=== PATIENT | female | born 1990 | race Asian ===

== ENCOUNTER 2017-01-28 06:33 | Inpatient (IN) | payer OTHER ==
[2017-01-28] VITALS (35 sets, daily range): BP systolic 98–144; BP diastolic 62–94
[~2017-01-28] VITALS: Ht 157.5 cm; Wt 75.9 kg
[2017-01-28] MEDS ORDERED: PRENATAL TABLE1 EAC3 PO (07:11)
[2017-01-28 08:08] LABS: EOSINOPHIL (%) 0.2 % (0-5); HEMATOCRIT 36.3 % (36.0-46.0); IMMATURE GRANULOCYTE (%) 0.8 % (0.0-0.7); IMMATURE GRANULOCYTE COUNT 0.1 K/uL; INSTRUMENT ABS NEUTROPHIL CT 9.5 K/uL; LYMPHOCYTE COUNT 2.2 K/uL (1.0-2.8); MCH 27.4 PG (29.0-34.0); MCHC 32.5 G/DL (30.0-36.0); MCV 84.2 FL (83-99); MEAN PLAT.VOLUME 12.9 uM^3 (9.5-12.4); MONOCYTE (%) 5.2 % (3-12); MONOCYTE COUNT 0.7 K/uL (0-0.8); NEUTROPHIL (%) 75.9 % (45-76); NEUTROPHIL COUNT 9.5 K/uL (1.8-6.4); PLATELET COUNT 183 K/uL (156-360); RBC DIS.WIDTH-CV 14.5 % (11.8-14.6); RBC DIS.WIDTH-SD 44.6 % (39-53); RED BLOOD COUNT 4.31 M/uL (3.80-5.20); WHITE BLOOD COUNT 12.6 K/uL (4.1-10.2)
[2017-01-28] MEDS ORDERED: MOTRIN800 MG PO (22:53)
[2017-01-29 00:39] VITALS: BP 127/72
[2017-01-29 01:24] VITALS: BP 130/75
[2017-01-29 07:35] VITALS: BP 122/81
[2017-01-29 15:33] VITALS: BP 118/62
[2017-01-29 23:44] VITALS: BP 128/71
[2017-01-30 07:25] VITALS: BP 118/75
[2017-01-30 15:17] VITALS: BP 125/75
== END 2017-01-30 17:27 | disposition home or self-care (01) | DRG 775 ==
LOC: LDRP-OP 06:33 → EDBD 06:34 → 2WEST 06:34 → LDRP-OP 09:26 → 2WEST 22:27 → LDRP-OP 02-23 20:18
PROVIDERS: Obstetrics & Gynecology
PROC: 10E0XZZ Delivery of Products of Conception, External Approach (ICD-10-PCS; principal; 2017-01-28)
PROC: 10907ZC Drainage of Amniotic Fluid, Therapeutic from Products of Conception, Via Natural or Artificial Opening (ICD-10-PCS; principal; 2017-01-28)
PROC: 3E0R3CZ (ICD-10-PCS; principal; 2017-01-28)
PROC: 0KQM0ZZ Repair Perineum Muscle, Open Approach (ICD-10-PCS; principal; 2017-01-28)
PROC: 00HU33Z Insertion of Infusion Device into Spinal Canal, Percutaneous Approach (ICD-10-PCS; principal; 2017-01-28)
DX: O70.1 Second degree perineal laceration during delivery (principal); Z3A.40 40 weeks gestation of pregnancy; Z37.0 Single live birth
CPT/HCPCS: 85025; C1755; J3010; J7120

== ENCOUNTER 2017-03-29 12:21 | Emergency (ER) | payer OTHER ==
[~2017-03-29] VITALS: Ht 157.5 cm; Wt 69.0 kg
[~2017-03-29 12:21] MED LIST: MOTRIN800 MG PO; PRENATAL TABLE1 EAC3 PO
[2017-03-29 14:30] LABS: EOSINOPHIL (%) 1.5 % (0-5); EOSINOPHIL COUNT 0.3 K/uL (0-0.3); HEMATOCRIT 36.9 % (36.0-46.0); IMMATURE GRANULOCYTE COUNT 0.2 K/uL; INSTRUMENT ABS NEUTROPHIL CT 12.9 K/uL; LYMPHOCYTE COUNT 3.7 K/uL (1.0-2.8); MCH 25.2 PG (29.0-34.0); MCHC 30.1 G/DL (30.0-36.0); MCV 83.9 FL (83-99); MEAN PLAT.VOLUME 9.6 uM^3 (9.5-12.4); MONOCYTE COUNT 0.7 K/uL (0-0.8); NEUTROPHIL (%) 72.3 % (45-76); NEUTROPHIL COUNT 12.9 K/uL (1.8-6.4); PLATELET COUNT 522 K/uL (156-360); RBC DIS.WIDTH-CV 13.8 % (11.8-14.6); RBC DIS.WIDTH-SD 42.5 % (39-53); WHITE BLOOD COUNT 17.8 K/uL (4.1-10.2)
[2017-03-29 14:39] LABS: CHLORIDE 103 mEq/L (99-109); POTASSIUM 4.1 mEq/L (3.7-5.4); SODIUM 139 mEq/L (136-147)
[2017-03-29 14:41] LABS: GLUCOSE 103 mg/dL (70-99)
[2017-03-29 14:42] LABS: ANION GAP 10 MEQ/L (2-14)
[2017-03-29 14:45] LABS: GFR ESTIMATE (CALCULATED) > 59 mL/min/
[2017-03-29 14:46] LABS: UREA NITROGEN (BUN) 8 mg/dL (9-23)
[2017-03-29 16:07] LABS: ADD MIUA? YES; BILIRUBIN NEGATIVE; BLOOD NEGATIVE; COLOR YELLOW ((YELLOW)); GLUCOSE (STRIP) NEGATIVE; KETONES NEGATIVE; LEUKOCYTES TRACE; NITRITE NEGATIVE; PROTEIN (STRIP) NEGATIVE; UROBILINOGEN 0.2 MG/DL (0.2-1.0)
[2017-03-29 16:10] LABS: BACTERIA NONE SEEN /HPF; EPITHELIAL CELLS RARE /HPF; MUCUS TRACE /LPF; RED BLOOD CELLS 0-5 /HPF (0-5); UCUL ADDED? NO; WHITE BLOOD CELLS 0-5 /HPF (0-5)
[2017-03-29] MEDS ORDERED: CLEOCIN300 MG PO (21:39)
[2017-03-29 22:05] VITALS: BP 101/67
== END 2017-03-29 22:11 | disposition home or self-care (01) ==
LOC: EME 12:21
PROC: 0H9UXZZ (ICD-10-PCS; principal; 2017-03-29)
DX: N61.1 Abscess of the breast and nipple (principal)
CPT/HCPCS: 76642; 80048; 81003; 83605; 85025; 87040; 87070; 87075; 87077; 87147; 87186; 87205; 99281; 99285; J1885; J7030